=== PATIENT | female | born 1995 ===

== ENCOUNTER 2024-06-01 13:16 | Emergency (ER) | payer OTHER, SELFPAY ==
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
[2024-06-01 13:34] VITALS: BP 138/78; BP 149/84; PULSE 100; PULSE 90; RESP 16; TEMP 36.6; O2SAT 97; BMI 41.8
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
[2024-06-01 13:58] VITALS: BP 149/84; PULSE 100; RESP 16; TEMP 36.6; O2SAT 97
[2024-06-01] MEDS: Acetaminophen 325 MG TABLET 975 MG PO (14:42)
[2024-06-01] MEDS: Lidocaine 4 % Patch ADH..PATCH 1 PATCH TRANSDERMA (14:42)
[2024-06-01 16:06] LABS: HCG Quantitative < 2 mIU/mL
[2024-06-01] MEDS: diazePAM 5 MG TABLET PO (16:12)
[2024-06-01 19:23] VITALS: BP 128/72; PULSE 84; RESP 16; TEMP 36.6; O2SAT 98
[2024-06-01 21:30] VITALS: BP 128/72; PULSE 84; RESP 16; TEMP 36.6; O2SAT 98
== END 2024-06-01 21:30 | disposition home or self-care (01) ==
PROVIDERS: Physician Assistant Medical; Emergency Provider Emergency Medicine
DX: Z04.1 Encounter for examination and observation following transport accident (principal); M54.2 Cervicalgia; M25.512 Pain in left shoulder; M54.50 Low back pain, unspecified
CPT/HCPCS: 36415; 70450; 72100; 72125; 73030; 84702; 99284